=== PATIENT | female | born 1955 | race Caucasian/White ===

== ENCOUNTER 2016-10-20 08:36 | Day surgery (SDC) | payer BC, OTHER ==
[~2016-10-20 08:36] MED LIST: Acetaminophen TAB* 325 MG PO PRN; Buffered Lidocaine 0.9% SYRIN* 5 ML/SYR SYRINGE INTRADERM ONE
[2016-10-20] MEDS ORDERED: fentaNYL* 50 MCG/ML 2 ML VIAL (100 MCG VIAL) ONE (09:59)
[2016-10-20] MEDS ORDERED: Midazolam* 1 MG/ML 2 ML VIAL (2 MG) ONE (10:00)
[2016-10-20 10:50] VITALS: BP 126/75
--- NOTE | 2016-10-20 11:34 | OP ---
OPERATIVE REPORT: DATE OF OPERATION: 10/20/16 DATE OF : 53 PRE-OP DIAGNOSIS: Cataract, right eye. POST-OP DIAGNOSIS: Cataract, right eye. OPERATIVE PROCEDURE: Cataract surgery involving the right eye. ANESTHESIA: Monitored anesthesia care. IMPLANT: SN60WF 19.5 diopter lens to the right eye. COMPLICATIONS: None. DESCRIPTION OF PROCEDURE: The patient was given phenylephrine 2.5% with cyclopentolate 1% eye drops to the operative eye in the preoperative area. The patient was brought to the operating room, gonzalo conteh a time-out was taken to identify the correct patient, site, and side of the surgery. The patient' s right eye was prepped and draped in the usual sterile fashion with 5% Betadine. A second time- ou t was taken to verify the correct patient, site, and side of surgery, and correct lens selection. A lid speculum was placed to the right eye. A 1-mm paracentesis blade was used to make a clear corne al incision in the superotemporal position. Preservative-free 1% lidocaine was injected into the ant erior chamber. DisCoVisc was then injected into the anterior chamber. A 2.75-mm keratome blade was used to make a triplanar incision at the inferotemporal position. A cystotome initiated a capsulor rhexis, which was completed with Utrata forceps in a continuous and curvilinear manner. Hydrodissec tion of the lens was performed with BSS on a cannula. The lens could be spun in the capsular bag. The phacoemulsification handpiece was used with a jfxldm-[id number]-mfafswe technique to remove the nucleus in its entirety with 15.83 CDE. The I/A handpiece then removed the residual cortical lens material . DisCoVisc was injected to inflate the capsular bag. The planned SN60WF 19.5 diopter lens was inj ected into the capsular bag. The residual DisCoVisc was removed from the eye with I/A handpiece. T he corneal incisions were hydrated and no leaks occurred at physiologic pressure around 20 mmHg per palpation. The lid speculum was then removed and drapes removed. Maxitrol ointment was placed on t he surface of the operative eye. An adhesive patch and shield was placed on the operative eye. The patient was taken to the postoperative area in stable condition. [id number]/[facility] #: [id number]
[2016-10-20] MEDS ORDERED: Lidocaine 1% MPF* 2 ML VIAL ONE (12:32)
[2016-10-20] MEDS ORDERED: Tetracaine 0.5% OPTH.SOL 4 ML* 1 DROP BTL ONE (12:32)
[2016-10-20] MEDS ORDERED: Neomycin/Polymy/Dex OPHTH.OIN* 3.5 GM ONE (12:32)
[2016-10-20] MEDS ORDERED: Flurbiprofen 0.03% OPTH.SOL* 2.5 ML BTL ONE (12:32)
[2016-10-20] MEDS ORDERED: Buffered Lidocaine 0.9% SYRIN* 5 ML/SYR SYRINGE ONE (12:32)
[2016-10-20] MEDS ORDERED: Phenylephrine 2.5% OPTH.SOL* 2 ML BTL ONE (12:32)
[2016-10-20] MEDS ORDERED: Tropicamide 1% OPTH.SOL* BTL ONE (12:32)
[2016-10-20] MEDS ORDERED: Cyclopentolate 1% OPTH.SOL* 2 ML BTL ONE (12:32)
[2016-10-20] MEDS ORDERED: acetaZOLAMIDE TAB* 250 MG ONE (12:32)
[2016-10-20] MEDS ORDERED: Povidone Iodine 5% OPTH* 30 ML BTL ONE (12:32)
== END 2016-10-20 10:51 | disposition home or self-care (01) ==
LOC: OREAST 08:36
PROVIDERS: ATTEND Student in an Organized Health Care Education/Training Program
DX: H25.811 Combined forms of age-related cataract, right eye (principal); H43.811 Vitreous degeneration, right eye
CPT/HCPCS: A9270-GY; J2250; J3010; V2632

== ENCOUNTER 2016-10-27 07:04 | Day surgery (SDC) | payer BC ==
[2016-10-27] MEDS ORDERED: Tropicamide 1% OPTH.SOL* BTL ONE (07:43)
[2016-10-27] MEDS ORDERED: Neomycin/Polymy/Dex OPHTH.OIN* 3.5 GM ONE (07:43)
[2016-10-27] MEDS ORDERED: Tetracaine 0.5% OPTH.SOL 4 ML* 1 DROP BTL ONE (07:43)
[2016-10-27] MEDS ORDERED: Flurbiprofen 0.03% OPTH.SOL* 2.5 ML BTL ONE (07:43)
[2016-10-27] MEDS ORDERED: Cyclopentolate 1% OPTH.SOL* 2 ML BTL ONE (07:43)
[2016-10-27] MEDS ORDERED: Lidocaine 1% MPF* 2 ML VIAL ONE (07:43)
[2016-10-27] MEDS ORDERED: acetaZOLAMIDE TAB* 250 MG ONE (07:43)
[2016-10-27] MEDS ORDERED: Phenylephrine 2.5% OPTH.SOL* 2 ML BTL ONE (07:43)
[2016-10-27] MEDS ORDERED: Povidone Iodine 5% OPTH* 30 ML BTL ONE (07:43)
[2016-10-27] MEDS ORDERED: fentaNYL* 50 MCG/ML 2 ML VIAL (100 MCG VIAL) ONE (08:02)
[2016-10-27] MEDS ORDERED: Midazolam* 1 MG/ML 2 ML VIAL (2 MG) ONE (08:07)
[2016-10-27 09:04] VITALS: BP 118/78
--- NOTE | 2016-10-28 01:26 | OP ---
DATE OF OPERATION: 10/27/16 - [facility] DATE OF : 53 SURGEON: Darron Ballard MD ANESTHESIOLOGIST: Kaylynn Cary MD ANESTHESIA: Monitored anesthesia care. PRE-OPERATIVE DIAGNOSIS: Cataract, left eye. POST-OPERATIVE DIAGNOSIS: Cataract, left eye. OPERATIVE PROCEDURE: Cataract surgery, left eye. IMPLANTS: SN60WF 20.0 diopter lens, left eye. COMPLICATIONS: None. DESCRIPTION OF PROCEDURE: The patient was given phenylephrine 2.5% and cyclopentolate 1% eye drops to the operative eye in the preoperative area. The patient was brought to the operating room where a time-out was taken to identify the correct patient, site and side of surgery. The patient's left eye was prepped and draped in the usual sterile fashion with 5% Betadine. A second time-out was taken to verify the correct patient, site and side of surgery, and correct lens selection. A lid speculum was placed to the left eye. A 1-mm paracentesis blade was used to make a clear corneal incision in the inferotemporal position. Preservative-free 1% lidocaine was injected into the anterior chamber. DisCoVisc was then injected in the anterior chamber. A 2.75 mm keratome blade was used to make a triplanar incision at the superotemporal position. A cystotome initiated a capsulorrhexis which was completed with Utrata forceps in a continuous and curvilinear manner. Hydrodissection of the lens was performed with BSS on a cannula. The lens could be spun in the capsular bag. The phacoemulsification handpiece was used with a divide and conquer technique to remove the nucleus in its entirety with 10.06 CDE. The I/ A handpiece then removed the residual cortical lens material. DisCoVisc was injected to inflate the capsular bag. The planned SN60WF 20.0 diopter lens was injected into the capsular bag. The residual DisCoVisc was removed from the eye with the I/A handpiece. The corneal incisions were hydrated, and no leaks occurred at physiologic pressure around 20 mmHg per palpation. The lid speculum was removed and drapes removed. Maxitrol ointment was placed to the surface of the operative eye. An adhesive patch and shield was then placed on the operative eye. The patient was taken to the postoperative area in stable condition. [id number]/[facility] #: [id number] MTDD
== END 2016-10-27 09:09 | disposition home or self-care (01) ==
LOC: OREAST 07:04
PROVIDERS: ATTEND Student in an Organized Health Care Education/Training Program
DX: H25.812 Combined forms of age-related cataract, left eye (principal); H43.811 Vitreous degeneration, right eye
CPT/HCPCS: A9270-GY; J2250; J3010; V2632